=== PATIENT | male | born 1950 | race Caucasian/White ===

== ENCOUNTER 2017-05-06 11:43 | Emergency (ER) | payer MEDICARE, BC ==
[2017-05-06 12:51] VITALS: BP 106/65
--- NOTE | 2017-05-06 13:31 | EDM.PDOC ---
ED HPI GENERAL MEDICAL PROBLEM - General Chief Complaint: ENT Problem Stated Complaint: cold fever [id number] Time Seen by Provider: 05/06/17 12:51 Source of Information: Reports: Patient, RN, RN Notes Reviewed History Limitations: Reports: No Limitations - History of Present Illness INITIAL COMMENTS - FREE TEXT/NARRATIVE: Patient burned his lip on chicken nuggets 12 days ago and since then he has sore throat and lip infection. He has been on Cephalexin 500mg tid x7 days. He had a fever last night of 100 and shortness of breath after chemotherapy.He has no nausea,vomiting, diarrhea, cough or chest pain. Patient has a history of colon, liver and lung cancer. Location: Reports: Other (throat) Quality: Reports: Ache Severity: Moderate Improves with: Reports: None Worsens with: Reports: None Associated Symptoms: Reports: No Other Symptoms Lip Pain Score (Numeric/FACES): 2 - Related Data Allergies Allergy/AdvReac Type Severity Reaction Status Date / Time mold Allergy Cough Verified 05/06/17 12:08 Home Meds: Home Meds Ondansetron HCl [Ondansetron] 4 mg PO ASDIRECTED PRN 10/05/14 [History] Warfarin Sodium [Warfarin Sodium] 1 tab PO DAILY 10/05/14 [History] Cephalexin 500 mg PO TID 05/06/17 [History] Warfarin [Coumadin] 2.5 mg PO DAILY 05/06/17 [History] oxyCODONE 5 mg PO DAILY 05/06/17 [History] Past Medical History HEENT History: Reports: Impaired Vision Cardiovascular History: Reports: Hypertension Respiratory History: Reports: Asthma, Other (See Below) Other Respiratory History: Lung cancer Gastrointestinal History: Reports: Other (See Below) Other Gastrointestinal History: liver cancer, colon cancer Genitourinary History: Reports: None Musculoskeletal History: Reports: Arthritis Neurological History: Reports: None Psychiatric History: Reports: None Endocrine/Metabolic History: Reports: None Hematologic History: Reports: None Oncologic (Cancer) History: Reports: Colon, Liver, Lung Other Oncologic History: with mets to Liver and lung 09/25/14 had radiation beads inserted by liver Dermatologic History: Reports: None - Infectious Disease History Infectious Disease History: Reports: Chicken Pox, Mumps - Past Surgical History Head Surgeries/Procedures: Reports: None Social & Family History - Family History Family Medical History: Unobtainable - Tobacco Use Smoking Status *Q: Never Smoker Second Hand Smoke Exposure: No - Caffeine Use Caffeine Use: Reports: Soda - Alcohol Use Days Per Week of Alcohol Use: 7 Number of Drinks Per Day: 3 Total Drinks Per Week: 21 - Recreational Drug Use Recreational Drug Use: No ED ROS ENT - Review of Systems Review Of Systems: ROS reveals no pertinent complaints other than HPI. ED EXAM, ENT - Physical Exam Exam: See Below Exam Limited By: No Limitations General Appearance: Alert, WD/WN, No Apparent Distress Eye Exam: Bilateral Eye: EOMI, Normal Inspection Ears: Normal External Exam, Hearing Grossly Normal Nose: Normal Inspection Mouth/Throat: Lip Swelling, Lip Ulcers, Oral Ulcers, Other (beefy red tongue) Head: Atraumatic, Normocephalic Neck: Normal Inspection, Supple, Non-Tender, Full Range of Motion Respiratory/Chest: No Respiratory Distress, Lungs Clear, Normal Breath Sounds, No Accessory Muscle Use, Chest Non-Tender Cardiovascular: Normal Peripheral Pulses, Regular Rate, Rhythm, No Edema, No Gallop, No JVD, No Murmur, No Rub GI/Abdominal: Normal Bowel Sounds, Soft, Non-Tender, No Organomegaly, No Distention, No Abnormal Bruit, No Mass (Male) Exam: Deferred Rectal (Males) Exam: Deferred Back: Normal Inspection, Full Range of Motion Extremities: Normal Inspection, Normal Range of Motion, Non-Tender, No Pedal Edema, Normal Capillary Refill Neurological: Alert, Oriented, CN II-XII Intact, Normal Cognition, Normal Gait, Normal Reflexes, No Motor/Sensory Deficits Psychiatric: Normal Affect, Normal Mood Skin: Warm, Dry, Intact, Normal Color, No Rash Lymphatic: No Adenopathy Course - Vital Signs Last Recorded V/S: Last Vital Signs Temp 97.7 F 05/06/17 12:50 Pulse 101 H 05/06/17 12:50 Resp 16 05/06/17 12:50 BP 106/65 05/06/17 12:50 Pulse Ox 100 05/06/17 12:50 Departure - Departure Time of Disposition: 13:30 Disposition: Home, Self-Care 01 Condition: Fair Clinical Impression: Thrush, oral - Discharge Information Instructions: Stomatitis, [id number] Referrals: PCP,None [Primary Care Provider] - Forms: ED Department Discharge Additional Instructions: RX: Nystatin Follow up with your primary care facility next week.
== END 2017-05-06 13:38 | disposition home or self-care (01) ==
LOC: DL.ED 11:43
DX: B37.0 Candidal stomatitis (principal); I10 Essential (primary) hypertension; Z79.01 Long term (current) use of anticoagulants; Z79.899 Other long term (current) drug therapy
CPT/HCPCS: 87081; 87430; 99283; 99284